=== PATIENT | male | born 1975 | race Caucasian/White ===

== ENCOUNTER 2021-06-22 10:25 | Inpatient (IN) | payer MEDICAID, SELFPAY ==
[2021-06-22 10:47] VITALS: BP 131/81; PULSE 67; RESP 18; TEMP 36.7; O2SAT 99; BMI 21.2
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
[2021-06-22] MEDS: lidocaine 5% Patch 1 PATCH TOPICAL (11:35)
[2021-06-22] MEDS: acetaminophen 500 mg Tablet PO (11:36)
[2021-06-22] MEDS: lidocaine 2% viscous 15 ML, aluminum-mag hydrox-simethicon 30 ML, sucralfate oral liq 1 GM PO (11:36)
[2021-06-22 11:40] LABS: Basophils # 0.1 10^3/uL (0.0-0.1); Basophils % 0.7 %; Eosinophils # 0.1 10^3/uL (0.0-0.8); Eosinophils % 1.4 %; Hematocrit 38.5 % (42.0-52.0); Hemoglobin 12.5 g/dL (11.7-16.6); Lymphocytes # 2.9 10^3/uL (0.8-4.8); Lymphocytes % 34.2 %; Mean Corpuscular HGB Conc 32.5 g/dL (30.0-36.0); Mean Corpuscular Hemoglobin 27.2 pg (28.0-34.0); Mean Corpuscular Volume 83.7 fl (80-94); Mean Platelet Volume 9.8 fL (7.4-10.4); Monocytes # 1.2 10^3/uL (0.2-0.9); Monocytes % 13.5 %; Neutrophils # 4.25 10^3/uL (1.8-7.7); Neutrophils % 49.7 %; Nucleated Red Blood Cells % 0 %; Platelet Count 254 10^3/cmm (130-400); Red Cell Distribution Width 14.6 % (12.1-15.1); White Blood Count 8.5 10^3/uL (4.0-10.0)
[2021-06-22 11:52] LABS: Amphetamines Screen Urine Positive (Negative); Barbiturates Screen Urine Negative (Negative); Benzodiazepines Screen Urine Negative (Negative); Cocaine Screen Urine Negative (Negative); Opiate Screen Urine Negative (Negative); PCP Screen Urine Negative (Negative); THC Screen Urine Positive (Negative)
[2021-06-22 12:21] LABS: Alanine Aminotransferase 25 U/L (0-41); Albumin Level 4.1 g/dL (3.5-5.2); Alkaline Phosphatase 63 IU/L (40-130); Aspartate Amino Transferase 36 U/L (0-40); Blood Urea Nitrogen 20 mg/dL (6-20); Calcium 8.7 mg/dL (8.5-10.5); Carbon Dioxide 25 mmol/L (22-29); Chloride 104 mmol/L (98-107); Globulin 1.9 g/dL (1.3-4.6); Glomerular Filtration Rate 104.5 mL/min (90-130); Glucose 119 mg/dL (65-115); Lipase 32 U/L (13-60); Osmolality Calculated 292 mOsm/kg (285-295); Sodium 139 mmol/L (136-145); Total Bilirubin 0.2 mg/dL (0.15-1.2)
[2021-06-22 12:22] LABS: Acetaminophen < 5.0 ug/mL (10-30); Salicylate < 0.3 mg/dL (3-10)
[2021-06-22 12:23] LABS: Anion Gap 14.2 (5-19); Potassium 4.2 mmol/L (3.5-5.1)
[2021-06-22 14:24] VITALS: BP 118/70; PULSE 82; RESP 16; O2SAT 93
[2021-06-22 15:03] VITALS: BP 116/78; PULSE 68; RESP 17; TEMP 37; O2SAT 98
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
[2021-06-22 19:56] VITALS: BP 112/69; PULSE 91; RESP 16; TEMP 36.8; O2SAT 97
[2021-06-23 06:00] VITALS: BP 103/64; PULSE 71; RESP 18; TEMP 36.7; O2SAT 96
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
[2021-06-23 14:00] VITALS: BP 113/66; PULSE 76; RESP 18; TEMP 37.1; O2SAT 97
[2021-06-23 20:30] VITALS: BP 119/72; PULSE 71; RESP 17; TEMP 37.2; O2SAT 95
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
[2021-06-24 06:00] VITALS: BP 112/78; PULSE 76; RESP 18; TEMP 36.5; O2SAT 97
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
[2021-06-24] MEDS: nicotine 2 mg Gum BUCCAL (11:53)
[2021-06-24 14:00] VITALS: BP 106/68; PULSE 84; RESP 18; TEMP 36.6; O2SAT 97
[2021-06-24] MEDS: acetaminophen 325 mg Tablet 650 MG PO (16:14)
--- NOTE | 2021-06-24 16:16 | PC.NURSE ---
Patient with c/o right upper tooth pain rated 3. 650 mg tylenol given po for this.
--- NOTE | 2021-06-24 19:40 | PC.NURSE ---
Pt complaining of right side rib/muscle pain. requested pain patch . stated he was given a big white patch before that eally helped. lidocaine 0.1% on 12h/off12h patch ordered prn
[2021-06-24 20:11] VITALS: BP 115/68; PULSE 65; RESP 18; TEMP 36.8; O2SAT 96
[2021-06-25 06:00] VITALS: RESP 17
[2021-06-25] MEDS: nicotine 2 mg Gum BUCCAL (13:48)
[2021-06-25 14:00] VITALS: BP 111/56; PULSE 73; RESP 18; TEMP 36.8; O2SAT 98
[2021-06-25] MEDS: acetaminophen 325 mg Tablet 650 MG PO ×2 (16:04→20:59)
[2021-06-25] MEDS: trazodone 50 mg Tablet PO (20:58)
[2021-06-25 22:00] VITALS: BP 113/70; PULSE 86; RESP 20; TEMP 36.6; O2SAT 97
[2021-06-26 06:00] VITALS: BP 101/63; PULSE 67; RESP 18; TEMP 36.7; O2SAT 98
[2021-06-26] MEDS: acetaminophen 325 mg Tablet 650 MG PO ×2 (10:02→15:06)
[2021-06-26 14:00] VITALS: BP 109/76; PULSE 74; RESP 18; TEMP 36.6; O2SAT 97
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
--- NOTE | 2021-06-26 14:52 | PC.SOCIAL ---
Patient did not attend group.
[2021-06-26] MEDS: benzocaine 20% 7 gm 1 APPLIC MUCOUS MEM (15:07)
[2021-06-26 20:36] VITALS: BP 114/68; PULSE 69; RESP 18; TEMP 36.7; O2SAT 98
[2021-06-26] MEDS: lidocaine 5% Patch 1 PATCH TOPICAL (21:22)
[2021-06-26] MEDS: trazodone 50 mg Tablet PO (21:22)
--- NOTE | 2021-06-26 23:44 | PC.NURSE ---
2122-lidocaine patch applied to left side of abd. and trazodone given for sleep.
[2021-06-27 06:00] VITALS: BP 104/61; PULSE 67; RESP 18; TEMP 36.4; O2SAT 99
[2021-06-27] MEDS: benzocaine 20% 7 gm 1 APPLIC MUCOUS MEM (09:50)
[2021-06-27] MEDS: acetaminophen 325 mg Tablet 650 MG PO (10:28)
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
[2021-06-27 14:12] VITALS: BP 104/61; PULSE 67; RESP 18; TEMP 36.4; O2SAT 99
== END 2021-06-27 14:33 | disposition home or self-care (01) | DRG 897 ==
LOC: ER 11:20 → NP 13:27
PROVIDERS: Admitting Provider Psychiatry & Neurology Psychiatry; Emergency Provider Emergency Medicine; Visit Provider Psychiatry & Neurology Psychiatry
DX: F15.150 Other stimulant abuse with stimulant-induced psychotic disorder with delusions (principal); R45.850 Homicidal ideations; F10.21 Alcohol dependence, in remission; G89.29 Other chronic pain; R10.9 Unspecified abdominal pain; F12.10 Cannabis abuse, uncomplicated; M54.9 Dorsalgia, unspecified; Z62.810 Personal history of physical and sexual abuse in childhood; Z87.891 Personal history of nicotine dependence
CPT/HCPCS: 80053; 80306; 80307; 83690; 85025; 97150; 97165; 99285